=== PATIENT | male | born 1985 | race Hispanic/Latino ===

== ENCOUNTER 2019-04-29 00:21 | Observation (INO) | payer SELFPAY ==
[2019-04-29 00:35] LABS: #Basophils 0.1 thou/uL (0.0-0.2); #Eosinphils 0.1 thou/uL (0.0-0.7); #Neutrophils 8.1 thou/uL (1.40-6.50); %Basophils 0.5 % (0.0-1.0); %Lymphocytes 29.8 % (21.0-51.0); %Monocytes 7.8 % (0.0-10.0); Hemoglobin 14.3 g/dL (14.0-18.0); Mean Corpuscular HGB CONC 35.3 g/dL (32.0-36.0); Mean Corpuscular Hemoglobin 29.8 pg (27.0-31.0); Mean Corpuscular Volume 84.3 fL (78.0-98.0); Mean Platelet Volume 6.7 fL (7.4-10.4); Platelet Count 282 thou/uL (130-400); RBC Distribution Width 12.9 % (11.5-14.5); Red Blood Cell (RBC) Count 4.79 mill/uL (4.70-6.10); White Blood Cell (WBC) Count 13.3 thou/uL (4.8-10.8)
[2019-04-29 00:46] LABS: Prothrombin Time 12.6 SEC (12.0-14.7)
[2019-04-29 00:48] LABS: ALT (SGPT) 52 U/L (8-55); AST (SGOT) 36 U/L (5-34); Acetaminophen Less than 6.0 mcg/mL (10.0-30.0); Albumin 4.5 g/dL (3.5-5.0); Alcohol 282 mg/dL (Less than 10); Alkaline Phosphatase 118 U/L (40-150); Anion Gap 19 mmol/L (10-20); BUN (Urea Nitrogen) 12 mg/dL (8.9-20.6); Bilirubin, Total 0.5 mg/dL (0.2-1.2); Calc. Creatinine Clearance 0 mL/min (70-130); Calcium 9.4 mg/dL (7.8-10.44); Carbon Dioxide 18 mmol/L (22-29); Chloride 101 mmol/L (98-107); Estimated GFR-MDRD 76; Globulin 3.2 g/dL (2.4-3.5); Glucose 142 mg/dL (70-105); Lipase 28 U/L (8-78); Potassium 3.2 mmol/L (3.5-5.1); Protein, Total 7.7 g/dL (6.0-8.3); Salicylate Less than 8.0 mg/dL (15.0-30.0); Sodium 135 mmol/L (136-145)
[2019-04-29] MEDS ORDERED: Adacel (T-DAP) 0.5 ML SYRINGE ONE (01:01)
[2019-04-29] MEDS ORDERED: Ondansetron PF 4 MG/2 ML Vial ONE (01:01)
[2019-04-29] MEDS ORDERED: Promethazine HCl 25 MG/ML VIAL IM PRN (01:07)
[2019-04-29] MEDS ORDERED: Ondansetron PF 4 MG/2 ML Vial IVP PRN (01:07)
[2019-04-29] MEDS ORDERED: Dextrose 5% in Water 1,000 ML IV PRN (01:07)
[2019-04-29] MEDS ORDERED: hydrALAZINE 20 MG/ML VIAL SLOW IVP PRN (01:07)
[2019-04-29] MEDS ORDERED: Dextrose 50% Abboject 50 ML SYRINGE SLOW IVP PRN (01:07)
[2019-04-29] MEDS ORDERED: Acetaminophen 325 MG TAB PO PRN (01:12)
[2019-04-29] MEDS ORDERED: traMADol HCl 50 MG TAB PO PRN (01:12)
[2019-04-29] MEDS ORDERED: Cyclobenzaprine 10 MG TAB PO PRN (01:12)
[2019-04-29 01:41] LABS: Bilirubin Negative (Negative); Blood, Urine Negative (Negative); Clarity Clear (Clear); Glucose, Urine (Dipstick) Normal (Negative); Leukocyte Negative Leu/uL (Negative); Nitrite Negative (Negative); Protein, Urine (Dipstick) Negative (Neg-Trace); RBC/HPF None Seen HPF (0-3); Urobilinogen Normal mg/dL (Less than 2); WBC/HPF 0-3 HPF (0-3)
[2019-04-29 01:43] LABS: Lactic Acid 3.6 mmol/L (0.5-2.2)
[2019-04-29] MEDS ORDERED: Potassium Chloride 20 MEQ TAB PO SCH (01:45)
[2019-04-29 02:38] VITALS: BMI 23.3
[2019-04-29] MEDS: Sodium Chloride 0.9% 1,000 ML IV SCH ×2 (03:02→09:04)
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
[2019-04-29 06:24] LABS: Lactic Acid 1.8 mmol/L (0.5-2.2)
[2019-04-29 06:27] LABS: Anion Gap 12 mmol/L (10-20); BUN (Urea Nitrogen) 10 mg/dL (8.9-20.6); Calc. Creatinine Clearance 121 mL/min (70-130); Calcium 8.7 mg/dL (7.8-10.44); Carbon Dioxide 23 mmol/L (22-29); Chloride 112 mmol/L (98-107); Estimated GFR-MDRD Greater than 90; Glucose 104 mg/dL (70-105); Magnesium 2.3 mg/dL (1.6-2.6); Phosphorus 3.4 mg/dL (2.3-4.7); Potassium 4.3 mmol/L (3.5-5.1); Sodium 143 mmol/L (136-145)
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
[2019-04-29] MEDS ORDERED: Multivitamin W/ Minerals 1 TAB PO SCH (09:00)
[2019-04-29] MEDS ORDERED: Polyethylene Glycol 3350 17 GM Packet PO SCH (09:00)
[2019-04-29] MEDS ORDERED: Famotidine/PF 20 mg/2ml Vial SLOW IVP SCH (09:00)
[2019-04-29] MEDS ORDERED: Folic Acid 1 MG TAB PO SCH (09:00)
[2019-04-29] MEDS ORDERED: Senokot S 8.6-50 MG TAB PO SCH (09:00)
[2019-04-29] MEDS ORDERED: Thiamine 100 MG TAB PO SCH (09:00)
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
[2019-04-29 11:11] LABS: Amphetamine Not Detected (NotDetected); Barbiturates Screen Not Detected (NotDetected); Benzodiazepine Screen Not Detected (NotDetected); Cocaine Metabolite Screen Not Detected (NotDetected); Medtox Control Line Valid? VALID (VALID); Medtox Reader # READER 4; Methadone Not Detected (NotDetected); Methamphetamine Not Detected (NotDetected); Opiate Screen Not Detected (NotDetected); Oxycodone Screen Not Detected (NotDetected); Phencyclidine (PCP) Not Detected (NotDetected); THC/Cannabinoid Screen Not Detected (NotDetected); Tricyclic Screen Not Detected (NotDetected)
[2019-04-29 11:36] VITALS: BP 123/71; TEMP 98.2
[2019-04-29] MEDS ORDERED: Iopamidol 370 76% 100 ML VIAL ONE (11:54)
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
== END 2019-04-29 11:45 | disposition home or self-care (01) ==
LOC: ERS 00:21 → EDBD 00:21 → SURG A 01:07
PROVIDERS: ADMIT Specialist; ATTEND Specialist
DX: S11.83XA Puncture wound without foreign body of other specified part of neck, initial encounter (principal); E87.6 Hypokalemia; F10.129 Alcohol abuse with intoxication, unspecified; W26.0XXA Contact with knife, initial encounter
CPT/HCPCS: 36415; 70450; 70498; 72125; 80053; 80306; 80307; 81001; 83605; 83690; 83735; 84100; 85025; 85610; 85730; 86850; 86900; 86901; 90471; 90715; 96361; 96365; 96375; G0378; J0690; J2405; Q9967; S0028